=== PATIENT | female | born 1970 | race Two or more races ===

== ENCOUNTER 2018-10-16 11:03 | Emergency (ER) | payer SELFPAY ==
[2018-10-16] MEDS ORDERED: LIDOCAINE 2% VISCOUS SOLN 20 ML UDCUP PO ONE (11:18)
[2018-10-16] MEDS ORDERED: METOCLOPRAMIDE HCL ORAL SOLN 10 MG/10 ML UDCUP PO ONE (11:18)
[2018-10-16] MEDS ORDERED: MAG HYDROX/AL HYDROX/SIMETH SUSP 30 ML UDCUP PO ONE (11:18)
[2018-10-16] MEDS ORDERED: ASPIRIN 81 MG TABLET, CHEWABLE PO ONE (11:18)
[2018-10-16 11:19] VITALS: BP 139/82
--- NOTE | 2018-10-16 11:21 | ER Document Report ---
ED Medical Screen (RME) - General Chief Complaint: Chest Pain Stated Complaint: CHEST PAIN Time Seen by Provider: 10/16/18 11:18 Mode of Arrival: Ambulatory Information source: Patient Notes: 48-year-old female presents to ED for complaint of chest pain off and on times a week. She states it is sharp heavy in waves like labor pain. She states it is substernal and making her left fingers numb off and on. She states this is been going on and off and now it is starting to scare her. She is alert oriented respirations regular and unlabored speaking in full sentences. Patient does smoke a pack a day and drinks about 6 beers after work each day. 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 I have greeted and performed a rapid initial assessment of this patient. A comprehensive ED assessment and evaluation of the patient, analysis of test results and completion of medical decision making process will be conducted by an additional ED providers. TRAVEL OUTSIDE OF THE [place] IN LAST 30 DAYS: No - Related Data Allergies/Adverse Reactions: No Known Allergies Allergy (Verified 10/16/18 11:04) Past Medical History - Social History Chew tobacco use (# tins/day): No Frequency of alcohol use: Heavy Drug Abuse: None Renal/ Medical History: Denies: Hx Peritoneal Dialysis Past Surgical History: Reports: Hx Tubal Ligation Physical Exam - Vital signs Vitals: Temp Pulse Resp BP Pulse Ox 98.0 F 83 18 139/82 H 97 10/16/18 11:18 10/16/18 11:18 10/16/18 11:18 10/16/18 11:18 10/16/18 11:18 Course - Vital Signs Vital signs: Temp Pulse Resp BP Pulse Ox 98.0 F 83 18 139/82 H 97 10/16/18 11:18 10/16/18 11:18 10/16/18 11:18 10/16/18 11:18 10/16/18 11:18
[2018-10-16 11:52] LABS: APPEARANCE,URINE CLEAR; BILIRUBIN,URINE NEGATIVE (NEGATIVE); COLOR,URINE YELLOW; GLUCOSE, URINE NEGATIVE (NEGATIVE); KETONES,URINE TRACE mg/dL (NEGATIVE); LEUKOCYTE ESTERASE,URINE NEGATIVE (NEGATIVE); NITRITE,URINE NEGATIVE (NEGATIVE); PROTEIN,URINE NEGATIVE (NEGATIVE); URINE SPECIFIC GRAVITY 1.021
[2018-10-16 11:55] LABS: ABSOLUTE BASOPHILS # (AUTO) 0.1 10^3/uL (0.0-0.2); ABSOLUTE EOSINOPHILS # (AUTO) 0.1 10^3/uL (0.0-0.6); ABSOLUTE LYMPHOCYTES (AUTO) 1.7 10^3/uL (0.5-4.7); ABSOLUTE MONOCYTES (AUTO) 0.5 10^3/uL (0.1-1.4); EOSINOPHILS % (AUTO) 2.7 % (0-6); HEMATOCRIT 43.6 % (36.0-47.0); HEMOGLOBIN 15.2 g/dL (12.0-15.5); LYMPHOCYTES % (AUTO) 31.4 % (13-45); MEAN CORPUSCULAR HEMOGLOBIN 32.1 pg (27.0-33.4); MEAN CORPUSCULAR HGB CONC 34.8 g/dL (32.0-36.0); MEAN CORPUSCULAR VOLUME 92 fl (80-97); MONOCYTES % (AUTO) 9.6 % (3-13); PLATELET COUNT 138 10^3/uL (150-450); RED BLOOD COUNT 4.73 10^6/uL (3.72-5.28); RED CELL DISTRIBUTION WIDTH 13.9 % (11.5-14.0); SEGMENTED NEUTROPHILS % (AUTO) 55.3 % (42-78); TOTAL CELLS COUNTED % (AUTO) 100 %; WHITE BLOOD COUNT 5.5 10^3/uL (4.0-10.5)
[2018-10-16 12:15] LABS: ALANINE AMINOTRANSFERASE 29 U/L (9-52); ALBUMIN 4.4 g/dL (3.5-5.0); ALKALINE PHOSPHATASE 79 U/L (38-126); ANION GAP 7 (5-19); ASPARTATE AMINO TRANSFERASE 33 U/L (14-36); BILIRUBIN,DIRECT 0.2 mg/dL (0.0-0.4); BILIRUBIN,TOTAL 0.6 mg/dL (0.2-1.3); BLOOD UREA NITROGEN 15 mg/dL (7-20); CALCIUM 9.8 mg/dL (8.4-10.2); CARBON DIOXIDE 29 mmol/L (22-30); CHLORIDE 105 mmol/L (98-107); CREATINE KINASE 84 U/L (30-135); GLUCOSE 92 mg/dL (75-110); LIPASE 258.2 U/L (23-300); POTASSIUM 3.9 mmol/L (3.6-5.0); SODIUM 141.4 mmol/L (137-145); TOTAL PROTEIN 7.9 g/dL (6.3-8.2)
[2018-10-16] MEDS ORDERED: METHOCARBAMOL 750 MG TABLET PO ONE (12:22)
--- NOTE | 2018-10-16 12:22 | RADIOLOGY REPORT (SQ) ---
EXAM DESCRIPTION: CHEST 2 VIEWS COMPLETED DATE/TIME: 10/16/2018 12:01 pm REASON FOR STUDY: Chest pain pressure off and on for week COMPARISON: None. EXAM PARAMETERS: NUMBER OF VIEWS: two views TECHNIQUE: Digital Frontal and Lateral radiographic views of the chest acquired. RADIATION DOSE: NA LIMITATIONS: none FINDINGS: LUNGS AND PLEURA: No opacities, masses or pneumothorax. No pleural effusion. MEDIASTINUM AND HILAR STRUCTURES: No masses or contour abnormalities. HEART AND VASCULAR STRUCTURES: Heart normal size. No evidence for failure. BONES: No acute findings. HARDWARE: None in the chest. OTHER: No other significant finding. IMPRESSION: NO ACUTE RADIOGRAPHIC FINDING IN THE CHEST. TECHNICAL DOCUMENTATION: JOB ID: [id number] [employer]- All Rights Reserved Reading location - IP/workstation name: [email or web address]
[2018-10-16 13:09] LABS: CREATINE KINASE MB 0.65 ng/mL (<4.55)
[2018-10-16 13:12] LABS: TROPONIN I < 0.012 ng/mL
--- NOTE | 2018-10-16 14:06 | ER Document Report ---
ED General - General Chief Complaint: Chest Pain Stated Complaint: CHEST PAIN Time Seen by Provider: 10/16/18 11:18 Mode of Arrival: Ambulatory TRAVEL OUTSIDE OF THE [place] IN LAST 30 DAYS: No - HPI Notes: Patient is a 48-year-old female presents emergency department for evaluation of left-sided and substernal chest pain. She states it radiates through to the back. Pain has been going on intermittently for about a week. She states nothing seems to provoke it, but it is worsened with cough. She describes it as heavy with sharp and stabbing aspects. She states her left hand seem to be tingling earlier today so she thought she should come in to be evaluated. She denies any associated shortness of breath, nausea, diaphoresis, near syncope. - Related Data Allergies/Adverse Reactions: No Known Allergies Allergy (Verified 10/16/18 11:04) Past Medical History - General Information source: Patient - Social History Smoking Status: Current Every Day Smoker Chew tobacco use (# tins/day): No Frequency of alcohol use: Heavy Drug Abuse: None Family History: CAD - Father with [place] in mid to late 50s Patient has suicidal ideation: No Patient has homicidal ideation: No Renal/ Medical History: Denies: Hx Peritoneal Dialysis Past Surgical History: Reports: Hx Tubal Ligation Review of Systems - Review of Systems Constitutional: No symptoms reported EENT: No symptoms reported Cardiovascular: See HPI Respiratory: No symptoms reported Gastrointestinal: No symptoms reported Genitourinary: No symptoms reported Musculoskeletal: No symptoms reported Skin: No symptoms reported Neurological/Psychological: See HPI Physical Exam - Vital signs Vitals: Temp Pulse Resp BP Pulse Ox 98.0 F 83 18 139/82 H 97 10/16/18 11:18 10/16/18 11:18 10/16/18 11:18 10/16/18 11:18 10/16/18 11:18 - Notes Notes: Vital signs reviewed, please refer to chart. Patient is normocephalic, atraumatic. Pupils equal round, reactive to light. Neck is supple without meningismus. Heart is regular rate and rhythm. Lungs are clear to auscultation bilaterally. No obvious deformity of the chest wall. Chest wall excursion is equal bilaterally. Palpation of the left chest wall reproduced the patient's pain. There is no subcutaneous emphysema. Abdomen is soft, nontender, normoactive bowel sounds throughout. Extremities without cyanosis, clubbing, edema. Peripheral pulses are equal. Skin is warm and dry. Patient is awake, alert, neurological exam is nonfocal. Examination of the left upper extremity is no obvious deformity. Radial pulses 2+. Sensation is intact throughout. Biceps and brachioradialis reflexes are 2+. Course - Re-evaluation Re-evalutation: 10/16/18 14:23 Patient presents the emergency department for evaluation. She complains of chest pain that has been present for a few weeks. It is not brought about by exertion. It is brought about by coughing, palpation. She does have a chronic smoker's cough. She is told to quit smoking. Her blood pressure is moderately elevated here but not significantly so. She is not have a primary care physician. At this point, with totally negative cardiac enzymes, negative chest x-ray, unremarkable EKG, I do believe we have ruled out acute coronary syndrome. Her heart score is 2 at the most. I explained to the patient and her family members/friends that I could not rule out coronary artery disease. She needs to quit smoking. She needs to make sure all of her risk factors are being addressed. She needs to follow-up with primary care. Will refer her on to community care in clinic, as well as our on-call primary care provider, Dr. Vivienne Goodwin. She is to try [id number] ibuprofen, will also write her prescription for Robaxin. She is to return to the emergency department with worsening or new concerning symptoms of any sort. - Vital Signs Vital signs: Temp Pulse Resp BP Pulse Ox 98.0 F 83 18 139/82 H 97 10/16/18 11:18 10/16/18 11:18 10/16/18 11:18 10/16/18 11:18 10/16/18 11:18 - Laboratory Result Diagrams: 10/16/18 11:30 10/16/18 11:30 Laboratory results interpreted by me: 10/16/18 10/16/18 11:30 11:30 Plt Count 138 L Urine Ketones TRACE H Urine Urobilinogen 2.0 H - Diagnostic Test Radiology reviewed: Reports reviewed - No acute cardiopulmonary disease - EKG Interpretation by Me Additional EKG results interpreted by me: 10/16/18 14:24 Sinus mechanism with a rate of 83 bpm. Normal axis and intervals, no acute ST changes concerning for ischemia or infarction. Discharge - Discharge Clinical Impression: Chest wall pain Condition: Stable Disposition: HOME, SELF-CARE Instructions: Chest Wall Pain ([facility]), Chest Pain of Unclear Cause ([facility]) Additional Instructions: Moist heat to the painful area. Take medication as prescribed. Follow-up with primary care as referred. Return to the emergency department with worsening or new concerning symptoms. Forms: Smoking Cessation Education [facility]: [facility] [NO [facility]AL MD] - Follow up as needed VIVIENNE ROCHE MD [COMMUNITY BASED STAFF] - Follow up as needed
--- NOTE | 2018-10-16 15:33 | EKG REPORT ---
SEVERITY:- NORMAL ECG - SINUS RHYTHM : Confirmed by: Catherine Aviles MD 16-Oct-2018 15:32:28
== END 2018-10-16 15:46 | disposition home or self-care (01) ==
LOC: ER 11:03
DX: R07.89 Other chest pain (principal); R05 Cough; F17.200 Nicotine dependence, unspecified, uncomplicated
CPT/HCPCS: 93005; 99284; 36415; 82553; 82550; 83690; 84703; 85025; 80053; 81001; 84484; 71046; 93010; J3490